=== PATIENT | male | born 1970 | race African-American/Black ===

== ENCOUNTER 2020-04-30 19:53 | Emergency (ER) | payer OTHER, SELFPAY ==
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
[2020-04-30 19:54] VITALS: BP 160/110; PULSE 91; RESP 18; TEMP 36.4; O2SAT 96
[2020-04-30 20:05] VITALS: BP 162/121; PULSE 69; RESP 16; O2SAT 98
[2020-04-30 21:00] VITALS: BP 145/98; PULSE 98; RESP 12; O2SAT 99
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
[2020-04-30 22:40] VITALS: BP 171/112; PULSE 61; RESP 17; O2SAT 99
[2020-04-30] MEDS: KETOROLAC 30 MG/ML VIAL (*BKC) IM (22:41)
[2020-04-30] MEDS: diazePAM (*CRX) 5 MG TABLET PO (22:41)
[2020-04-30] MEDS: HYDROcodone/acetaminophen (*CRX) 5-325 MG TABLET 1 TAB PO (22:41)
[2020-04-30] MEDS: TETANUS,DIPHTHERIA,AC PERTUSSIS ADULT (0.5 ML) BOOSTRIX IM (22:55)
== END 2020-04-30 22:40 | disposition home or self-care (01) ==
PROVIDERS: Emergency Provider Emergency Medicine
DX: S16.1XXA Strain of muscle, fascia and tendon at neck level, initial encounter (principal); S39.012A Strain of muscle, fascia and tendon of lower back, initial encounter; S70.02XA Contusion of left hip, initial encounter; Z23 Encounter for immunization; V49.50XA Passenger injured in collision with unspecified motor vehicles in traffic accident, initial encounter
CPT/HCPCS: 72050; 72100; 73502; 90471; 90715; 96372; 99284; A9270; J1885